=== PATIENT | male | born 1965 | race Caucasian/White ===

== ENCOUNTER → 2021-08-24 | Outpatient (CLI) | payer BC, MEDICARE ==
[2021-08-24 11:00] LABS: BUN/CREATININE RATIO 13 (0-10)
[2021-08-25 11:14] LABS: ALPHA-1-ANTITRYPSIN, SERUM 269 mg/dL (101-187); HBSAG SCREEN Negative (Negative); HEP A AB, IGM Negative (Negative); HEP B CORE AB, IGM Negative (Negative); HEP C VIRUS AB 0.1 (0.0-0.9)
[2021-08-25 15:14] LABS: MITOCHONDRIAL (M2) ANTIBODY <20.0 Units (0.0-20.0)
== END ==
LOC: OPSV 09:32
PROVIDERS: Internal Medicine Gastroenterology
DX: K74.60 Unspecified cirrhosis of liver (principal); R18.8 Other ascites
CPT/HCPCS: 36415; 80048; 80074; 80076; 82103; 82728; 83540; 83550; 86038; C1729

== ENCOUNTER → 2021-08-31 | Day surgery (SDC) | payer BC, MEDICARE ==
[~2021-08-31] MED LIST: LASIX20 MG PO; LISINOPRIL10 MG PO; SPIRONOLACTONE50 MG PO; TRELEGY INHALER INH
== END | disposition home or self-care (01) ==
LOC: OR 06:15
DX: K76.6 Portal hypertension (principal); K31.89 Other diseases of stomach and duodenum; K29.50 Unspecified chronic gastritis without bleeding; K70.31 Alcoholic cirrhosis of liver with ascites; Z88.6 Allergy status to analgesic agent; I10 Essential (primary) hypertension; E66.3 Overweight; Z72.0 Tobacco use; Z71.6 Tobacco abuse counseling; Z68.28 Body mass index [BMI] 28.0-28.9, adult; Z20.822 Contact with and (suspected) exposure to COVID-19; K44.9 Diaphragmatic hernia without obstruction or gangrene; K22.2 Esophageal obstruction
CPT/HCPCS: J7040

== ENCOUNTER → 2021-09-13 | Outpatient (CLI) | payer MEDICARE, BC ==
[~2021-09-13] VITALS: Ht 162.6 cm; Wt 74.8 kg
[2021-09-13 12:01] LABS: BUN/CREATININE RATIO 16 (0-10)
[2021-09-13 12:59] LABS: BODY FLUID SOURCE ASCITES
[2021-09-13 13:00] LABS: MONONUCLEAR CELLS 90 (75-100); POLYMORPHONUCLEAR % 10 (0-25); RBC (AUTOMATED) 200 (0-100000); WBC (AUTOMATED) 363 (0-500)
[2021-09-13 13:13] LABS: TOTAL PROTEIN, BODY FLUID 3.2 gm/dL
[2021-09-14 13:13] LABS: LIVER-KIDNEY MICROSOMAL AB 3.9 Units (0.0-20.0)
== END ==
LOC: OPSV 09:50
PROVIDERS: Internal Medicine Gastroenterology
DX: K70.31 Alcoholic cirrhosis of liver with ascites (principal)
CPT/HCPCS: 36415; 80048; 82150; 82784; 82945; 83516; 83615; 83986; 84157; 86376; 87070; 87205; 89051; 96374; 96375; C1729; P9047

== ENCOUNTER → 2021-09-29 | Outpatient (CLI) | payer MEDICARE, BC ==
[~2021-09-29] VITALS: Ht 162.6 cm; Wt 74.8 kg
[2021-09-29 12:42] LABS: BUN/CREATININE RATIO 31 (0-10)
== END ==
LOC: OPSV 11:00
PROVIDERS: Internal Medicine Gastroenterology
DX: K70.31 Alcoholic cirrhosis of liver with ascites (principal)
CPT/HCPCS: 36415; 80048